=== PATIENT | female | born 1965 | race Caucasian/White ===

== ENCOUNTER 2017-06-18 07:38 | Emergency (ER) | payer BC ==
--- NOTE | 2017-06-18 08:18 | EDM.PDOC ---
ED HPI GENERAL MEDICAL PROBLEM - General Chief Complaint: General Stated Complaint: MUSCLE PAINS Time Seen by Provider: 06/18/17 08:40 Source of Information: Reports: Patient History Limitations: Reports: No Limitations - History of Present Illness INITIAL COMMENTS - FREE TEXT/NARRATIVE: History of present illness: []Patient is here chronic muscle cramps. Patient has had a cervical fusion and since then has had muscle cramps on the right side of her neck that she states triggers cramps all throughout her body. This morning she had a right calf cramp that is not unusual. She has had them before and they are unchanged. Patient was denied disability last week and was told that she needed to come to the ER for documentation of chronic pain. She has been evaluated by physics technical officer who is working her up for "fibro". Review of systems: As per history of present illness and below otherwise all systems reviewed and negative. Past medical history: As per history of present illness and as reviewed below otherwise noncontributory. Surgical history: As per history of present illness and as reviewed below otherwise noncontributory. Social history: No reported history of drug or alcohol abuse. Family history: As per history of present illness and as reviewed below otherwise noncontributory. Physical exam: General: Well developed, well nourished in NAD HEENT: Atraumatic, normocephalic, pupils reactive, negative for conjunctival pallor or scleral icterus, mucous membranes moist, throat clear, neck supple, nontender, trachea midline. Lungs: Clear to auscultation, breath sounds equal bilaterally, chest nontender. Heart: S1S2, regular, negative for clicks, rubs, or JVD. Abdomen: Soft, nondistended, nontender. Negative for masses or hepatosplenomegaly. Negative for costovertebral tenderness. Pelvis: Stable nontender. Genitourinary: Deferred. Rectal: Deferred. Extremities: Atraumatic, negative for cords or calf pain. Neurovascular unremarkable. Neuro: Awake, alert, oriented. Cranial nerves II through XII unremarkable. Cerebellum unremarkable. Motor and sensory unremarkable throughout. Exam nonfocal. Diagnostics: Labs chemistry including calcium mag and phosphorus are all negative Therapeutics: [] Impression: []Chronic muscle cramping Plan: []Increase fluids follow-up with primary care Definitive disposition and diagnosis as appropriate pending reevaluation and review of above. body Pain Score (Numeric/FACES): 10 - Related Data Allergies Allergy/AdvReac Type Severity Reaction Status Date / Time acetaminophen Allergy Other Verified 06/18/17 07:50 [From Darvocet-N] adhesive Allergy Other Verified 06/18/17 07:50 azithromycin Allergy Hives Verified 06/18/17 07:50 codeine Allergy Other Verified 06/18/17 07:50 cyclobenzaprine HCl Allergy Hives Verified 06/18/17 07:50 [From Flexeril] hydromorphone HCl Allergy Other Verified 06/18/17 07:50 [From Dilaudid] iodine Allergy Fever Verified 06/18/17 07:50 Latex, Natural Rubber Allergy Other Verified 06/18/17 07:50 meloxicam Allergy Hives Verified 06/18/17 07:50 morphine Allergy Other Verified 06/18/17 07:50 oxycodone HCl [From Percocet] Allergy Hives Verified 06/18/17 07:50 Penicillins Allergy Itching Verified 06/18/17 07:50 propoxyphene napsylate Allergy Other Verified 06/18/17 07:50 [From Darvocet-N] opiates Allergy Hives Uncoded 04/07/14 13:41 Home Meds: Home Meds Esomeprazole Magnesium [Nexium 24Hr] 20 mg PO DAILY 06/18/17 [History] Famotidine 20 mg PO DAILY 06/18/17 [History] L.acidoph,Paracasei, B.lactis [Probiotic] 1 cap PO DAILY 06/18/17 [History] Lisinopril 10 mg PO DAILY 06/18/17 [History] Loratadine 10 mg PO DAILY 06/18/17 [History] Mirtazapine 15 mg PO DAILY 06/18/17 [History] Venlafaxine [Effexor XR] 75 mg PO DAILY 06/18/17 [History] lamoTRIgine [Lamotrigine] 100 mg PO DAILY 06/18/17 [History] Past Medical History Cardiovascular History: Reports: Hypertension Respiratory History: Reports: None Gastrointestinal History: Reports: None Genitourinary History: Reports: None 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: , 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 (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) Other OB/BYN History: complete hysterectomy Musculoskeletal History: Reports: None Neurological History: Reports: None Psychiatric History: Reports: Anxiety, Depression Endocrine/Metabolic History: Reports: None Hematologic History: Reports: None Immunologic History: Reports: None Oncologic (Cancer) History: Reports: None Dermatologic History: Reports: None - Infectious Disease History Infectious Disease History: Reports: Chicken Pox - Past Surgical History Head Surgeries/Procedures: Reports: None HEENT Surgical History: Reports: None, Tonsillectomy Cardiovascular Surgical History: Reports: None Respiratory Surgical History: Reports: None GI Surgical History: Reports: None, Cholecystectomy Female Surgical History: Reports: None Endocrine Surgical History: Reports: None Neurological Surgical History: Reports: None Musculoskeletal Surgical History: Reports: Other (See Below) Other Musculoskeletal Surgeries/Procedures:: residual spinal, spinal fusions. Oncologic Surgical History: Reports: None Dermatological Surgical History: Reports: None Social & Family History - Family History Family Medical History: Noncontributory - Tobacco Use Smoking Status *Q: Current Every Day Smoker Years of Tobacco use: 30 Packs/Tins Daily: 1 - Caffeine Use Caffeine Use: Reports: Coffee - Alcohol Use Days Per Week of Alcohol Use: 0 - Recreational Drug Use Recreational Drug Use: No ED ROS GENERAL - Review of Systems Review Of Systems: See Below (See history of present illness) ED EXAM, GENERAL - Physical Exam Exam: See Below (See history of present illness) Course - Vital Signs Last Recorded V/S: Last Vital Signs Temp 97.0 F 06/18/17 07:50 Pulse 108 H 06/18/17 07:50 Resp 18 06/18/17 07:50 BP 143/83 H 06/18/17 07:50 Pulse Ox 95 06/18/17 07:50 - Orders/Labs/Meds Labs: Laboratory Tests 06/18/17 Range/Units 08:26 Sodium 137 (136-146) mmol/L Potassium 3.7 (3.5-5.1) mmol/L Chloride 104 (98-110) mmol/L Carbon Dioxide 21 (21-31) mmol/L BUN 15 (6.0-23.0) mg/dL Creatinine 1.0 (0.6-1.5) mg/dL Est Cr Clr Drug Dosing 66.18 mL/min Estimated GFR (MDRD) 58.9 ml/min Glucose 111 H (60-110) mg/dL Calcium 9.2 (8.8-10.8) mg/dL Phosphorus 2.8 (2.4-4.7) mg/dL Magnesium 1.6 (1.5-2.3) mEq/L Departure - Departure Time of Disposition: 09:13 Disposition: Home, Self-Care 01 Condition: Good Clinical Impression: Cramps, muscle, general - Discharge Information Referrals: PCP,None [Primary Care Provider] - Forms: ED Department Discharge Additional Instructions: The following information is given to patients seen in the emergency department who are being discharged to home. This information is to outline your options for follow-up care. We provide all patients seen in our emergency department with a follow-up referral. The need for follow-up, as well as the timing and circumstances, are variable depending upon the specifics of your emergency department visit. If you don't have a primary care physician on staff, we will provide you with a referral. We always advise you to contact your personal physician following an emergency department visit to inform them of the circumstance of the visit and for follow-up with them and/or the need for any referrals to a consulting specialist. The emergency department will also refer you to a specialist when appropriate. This referral assures that you have the opportunity for follow-up care with a specialist. All of these measure are taken in an effort to provide you with optimal care, which includes your follow-up. Under all circumstances we always encourage you to contact your private physician who remains a resource for coordinating your care. When calling for follow-up care, please make the office aware that this follow-up is from your recent emergency room visit. If for any reason you are refused follow-up, please contact the [facility] Emergency Department at and asked to speak to the emergency department charge nurse. Increase fluids ibuprofen or heat for pain follow-up with primary care and return if symptoms worsen or change [facility] [address] [place] [id number]
== END 2017-06-18 09:30 | disposition home or self-care (01) ==
LOC: MW.ED 07:38
DX: R25.2 Cramp and spasm (principal); I10 Essential (primary) hypertension; F17.210 Nicotine dependence, cigarettes, uncomplicated; Z91.040 Latex allergy status; Z88.5 Allergy status to narcotic agent; Z88.1 Allergy status to other antibiotic agents; Z88.0 Allergy status to penicillin; Z79.899 Other long term (current) drug therapy
CPT/HCPCS: 36415; 80048; 83735; 84100; 99284

== ENCOUNTER 2017-12-21 12:44 | Emergency (ER) | payer BC ==
--- NOTE | 2017-12-21 13:55 | EDM.PDOC ---
ED HPI GENERAL MEDICAL PROBLEM - General Chief Complaint: Back Pain or Injury Stated Complaint: LEGS,BACK AND NECK PAIN Time Seen by Provider: 12/21/17 13:07 Source of Information: Reports: Patient History Limitations: Reports: No Limitations - History of Present Illness INITIAL COMMENTS - FREE TEXT/NARRATIVE: HISTORY AND PHYSICAL: History of present illness: Patient is a 52-year-old female presents to the emergency room with complaints of low back pain that radiates down glutes and posterior thigh, bilaterally. She states she had tripped over her shoe on 12/13/2017 resulting in her landing on her knees and hitting against the wall sideways. She states since that time she has had some low back discomfort. Over the past 2 days she has had 2 long car rides to and from [place]. She states that during these long car ride she was unable to get comfortable and felt like the musculature in her back is very stiff. A history of fibromyalgia and spinal fusion of C4-C6, L5-S1 due to an injury that occurred in 2011. Denies hitting her head or any loss of consciousness. She states she does have some neuropathy (normal variance) but no new or worsening numbness or tingling to her distal extremities. Denies any urinary or fecal incontinence. Review of systems: As per history of present illness and below otherwise all systems reviewed and negative. Past medical history: As per history of present illness and as reviewed below otherwise noncontributory. Surgical history: As per history of present illness and as reviewed below otherwise noncontributory. Social history: No reported history of drug or alcohol abuse. Family history: As per history of present illness and as reviewed below otherwise noncontributory. Physical exam: General: Well-developed and well-nourished 52-year-old female. Alert and oriented. Nontoxic appearing and in no acute distress. HEENT: Atraumatic, normocephalic, pupils equal and reactive bilaterally, negative for conjunctival pallor or scleral icterus, mucous membranes moist, throat clear, neck supple, nontender, trachea midline. No drooling or trismus noted. No meningeal signs Lungs: Clear to auscultation, breath sounds equal bilaterally, chest nontender. Heart: S1S2, regular rate and rhythm without overt murmur Abdomen: Soft, nondistended, nontender. Negative for masses or hepatosplenomegaly. Negative for costovertebral tenderness. Pelvis: Stable nontender. Genitourinary: Deferred. Rectal: Deferred. C-spine/Back: Pinpoint vertebral tenderness upon palpation. No crepitus, step- offs or obvious deformities. Patient is ambulatory without any difficulty or deficits. Denies any Skin: Intact, warm, dry. No lesions or rashes noted. Extremities: Atraumatic, negative for cords or calf pain. Neurovascular unremarkable. Neuro: Awake, alert, oriented. Cranial nerves II through XII unremarkable. Cerebellum unremarkable. Motor and sensory unremarkable throughout. Exam nonfocal. Notes: Her x-ray shows normal alignment, vertebral body height is maintained without any acute findings. The information was shared with the patient. She states she currently does not have a pain management doctor. We discussed her acute on chronic back pain. I will give her #5 Norflex (allergic to flexeril) no refill. #30 tabs diclofenac, no refill. Supportive care measures were reviewed and discussed. He is agreeable to plan of care. Denies any further questions at this time. Diagnostics: Lumbar x-ray Therapeutics: Norflex Impression: Acute vs Chronic Back Pain Sciatica, bilateral Plan: 1. Gentle heat and stretching 2. Take medication as directed. Norflex may cause drowsiness, so please do not take while driving or needing to be functioning outside the house. 3. Please follow up with a primary care provider in the next 1-2 days. Return to the ED as needed and as discussed. Definitive disposition and diagnosis as appropriate pending reevaluation and review of above. Right Neck Pain Score (Numeric/FACES): 9 Bilateral Leg Pain Score (Numeric/FACES): 9 - Related Data Allergies Allergy/AdvReac Type Severity Reaction Status Date / Time acetaminophen Allergy Other Verified 12/21/17 12:56 [From Darvocet-N] adhesive Allergy Other Verified 12/21/17 12:56 azithromycin Allergy Hives Verified 12/21/17 12:56 codeine Allergy Other Verified 12/21/17 12:56 cyclobenzaprine HCl Allergy Hives Verified 12/21/17 12:56 [From Flexeril] hydromorphone HCl Allergy Other Verified 12/21/17 12:56 [From Dilaudid] iodine Allergy Fever Verified 12/21/17 12:56 Latex, Natural Rubber Allergy Other Verified 12/21/17 12:56 meloxicam Allergy Hives Verified 12/21/17 12:56 morphine Allergy Other Verified 12/21/17 12:56 oxycodone HCl [From Percocet] Allergy Hives Verified 12/21/17 12:56 Penicillins Allergy Itching Verified 12/21/17 12:56 propoxyphene napsylate Allergy Other Verified 12/21/17 12:56 [From Darvocet-N] opiates Allergy Hives Uncoded 04/07/14 13:41 Home Meds: Home Meds Esomeprazole Magnesium [Nexium 24Hr] 20 mg PO DAILY 06/18/17 [History] Famotidine 20 mg PO DAILY 06/18/17 [History] L.acidoph,Paracasei, B.lactis [Probiotic] 1 cap PO DAILY 06/18/17 [History] Lisinopril 10 mg PO DAILY 06/18/17 [History] Loratadine 10 mg PO DAILY 06/18/17 [History] Mirtazapine 15 mg PO DAILY 06/18/17 [History] Venlafaxine [Effexor XR] 75 mg PO DAILY 06/18/17 [History] Past Medical History Cardiovascular History: Reports: Hypertension Respiratory History: Reports: None Gastrointestinal History: Reports: None Genitourinary History: Reports: None 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: , 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 Musculoskeletal History: Reports: None Neurological History: Reports: None Psychiatric History: Reports: Anxiety, Depression Endocrine/Metabolic History: Reports: None Hematologic History: Reports: None Immunologic History: Reports: None Oncologic (Cancer) History: Reports: None Dermatologic History: Reports: None - Infectious Disease History Infectious Disease History: Reports: None - Past Surgical History Head Surgeries/Procedures: Reports: None HEENT Surgical History: Reports: None, Tonsillectomy Cardiovascular Surgical History: Reports: None Respiratory Surgical History: Reports: None GI Surgical History: Reports: None, Cholecystectomy Female Surgical History: Reports: None Endocrine Surgical History: Reports: None Neurological Surgical History: Reports: None Musculoskeletal Surgical History: Reports: Other (See Below) Other Musculoskeletal Surgeries/Procedures:: residual spinal, spinal fusions. Oncologic Surgical History: Reports: None Dermatological Surgical History: Reports: None Social & Family History - Family History Family Medical History: Noncontributory - Tobacco Use Smoking Status *Q: Current Every Day Smoker Years of Tobacco use: 30 Packs/Tins Daily: 0.7 - Caffeine Use Caffeine Use: Reports: Coffee - Recreational Drug Use Recreational Drug Use: No ED ROS GENERAL - Review of Systems Review Of Systems: ROS reveals no pertinent complaints other than HPI. ED EXAM,LOWER BACK PAIN/INJURY - Physical Exam Exam: See Below (see dictation) Course - Vital Signs Last Recorded V/S: Last Vital Signs Temp 97.0 F 12/21/17 12:59 Pulse 98 12/21/17 12:59 Resp 18 12/21/17 12:59 BP 141/90 H 12/21/17 12:59 Pulse Ox 92 L 12/21/17 12:59 - Orders/Labs/Meds Meds: Medications Discontinued Medications Generic Name Dose Route Start Last Admin Trade Name Alec PRN Reason Stop Dose Admin Orphenadrine Citrate 60 mg 12/21/17 13:48 12/21/17 13:53 Norflex IM 12/21/17 13:49 60 mg NOW STA Administration Departure - Departure Time of Disposition: 14:39 Disposition: Home, Self-Care 01 Clinical Impression: Sciatica Qualifiers: Laterality: bilateral Qualified Code(s): M54.31 - Sciatica, right side; M54.32 - Sciatica, left side Back pain Qualifiers: Back pain location: low back pain Chronicity: unspecified Back pain laterality : bilateral Sciatica presence: with sciatica Sciatica laterality: bilateral sciatica Qualified Code(s): M54.42 - Lumbago with sciatica, left side; M54.41 - Lumbago with sciatica, right side - Discharge Information Referrals: PCP,None [Primary Care Provider] - Forms: ED Department Discharge Additional Instructions: The following information is given to patients seen in the emergency department who are being discharged to home. This information is to outline your options for follow-up care. We provide all patients seen in our emergency department with a follow-up referral. The need for follow-up, as well as the timing and circumstances, are variable depending upon the specifics of your emergency department visit. If you don't have a primary care physician on staff, we will provide you with a referral. We always advise you to contact your personal physician following an emergency department visit to inform them of the circumstance of the visit and for follow-up with them and/or the need for any referrals to a consulting specialist. The emergency department will also refer you to a specialist when appropriate. This referral assures that you have the opportunity for follow-up care with a specialist. All of these measure are taken in an effort to provide you with optimal care, which includes your follow-up. Under all circumstances we always encourage you to contact your private physician who remains a resource for coordinating your care. When calling for follow-up care, please make the office aware that this follow-up is from your recent emergency room visit. If for any reason you are refused follow-up, please contact the [facility] Emergency Department at and asked to speak to the emergency department charge nurse. [facility] [address] [place] [id number] [facility] - Pain Management [address] [place] [id number] 1. Gentle heat and stretching 2. Take medication as directed. Norflex may cause drowsiness, so please do not take while driving or needing to be functioning outside the house. 3. Please follow up with a primary care provider in the next 1-2 days. 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 Return to the ED as needed and as discussed.
--- NOTE | 2017-12-21 14:26 | CR ---
EXAMINATION: Lumbar spine HISTORY: Injury COMPARISON: 05/12/2014 TECHNIQUE: AP and lateral views FINDINGS: The lumbar spinal alignment is normal. Vertebral body heights appear maintained. Posterior fusion changes noted at L5-S1. Mild marginal osteophytes. SI joints are symmetric. Bone mineralizatio n is normal. IMPRESSION: Postsurgical and degenerative changes without acute findings.
== END 2017-12-21 14:52 | disposition home or self-care (01) ==
LOC: MW.ED 12:44
DX: M54.41 Lumbago with sciatica, right side (principal); M54.42 Lumbago with sciatica, left side; I10 Essential (primary) hypertension; F17.210 Nicotine dependence, cigarettes, uncomplicated; Z88.6 Allergy status to analgesic agent; Z88.1 Allergy status to other antibiotic agents; Z88.5 Allergy status to narcotic agent; Z91.040 Latex allergy status; Z88.0 Allergy status to penicillin; Z88.8 Allergy status to other drugs, medicaments and biological substances; Z79.899 Other long term (current) drug therapy
CPT/HCPCS: 72100; 96372; 99284; J2360; 99283

== ENCOUNTER 2018-12-24 14:35 | Emergency (ER) | payer BC ==
[2018-12-24] MEDS ORDERED: Sodium Chloride 0.9% 2.5 ML Syringe FLUSH PRN (14:41)
[2018-12-24] MEDS ORDERED: Sodium Chloride 0.9% 10 ML Syringe FLUSH PRN (14:41)
[2018-12-24] MEDS ORDERED: Sodium Chloride 0.9% 1,000 ML IV ONE (14:41)
[2018-12-24] MEDS ORDERED: Albuterol/Ipratropium 3.0-0.5 MG/3 ML Neb Soln NEB ONE (14:53)
--- NOTE | 2018-12-24 14:57 | EDM.PDOC ---
ED HPI GENERAL MEDICAL PROBLEM - General Chief Complaint: Chest Pain Stated Complaint: UNK Time Seen by Provider: 12/24/18 14:54 Source of Information: Reports: Patient History Limitations: Reports: No Limitations - History of Present Illness INITIAL COMMENTS - FREE TEXT/NARRATIVE: HISTORY AND PHYSICAL: History of present illness: Patient is a 53-year-old female presents to the ED with complaint of chest pain. States that for the past month she has been having abdominal pain in the last couple of days having a lot of bloating. She states this morning she started having a pressure in her chest. She states she has been more short of breath recently, she is currently a smoker and has a history of COPD. She states she's been nauseous but denies vomiting, diarrhea, fevers, chills. Past medical history significant for hypertension and hyperlipidemia. Review of systems: As per history of present illness and below otherwise all systems reviewed and negative. Past medical history: As per history of present illness and as reviewed below otherwise noncontributory. Surgical history: As per history of present illness and as reviewed below otherwise noncontributory. Social history: No reported history of drug or alcohol abuse. Family history: As per history of present illness and as reviewed below otherwise noncontributory. Physical exam: General: Patient sitting comfortably in no acute distress and nontoxic appearing HEENT: Atraumatic, normocephalic, pupils reactive, negative for conjunctival pallor or scleral icterus, mucous membranes moist, throat clear, neck supple, nontender, trachea midline. No meningeal signs. Lungs: Clear to auscultation, breath sounds equal bilaterally, tender to palpation of left anterior chest wall. Heart: S1S2, regular, negative for clicks, rubs, or overt murmur. Abdomen: Soft, nondistended, nontender. Negative for masses or hepatosplenomegaly. Negative for costovertebral tenderness. No rigidity, rebound , guarding. Pelvis: Stable nontender. Genitourinary: Deferred. Rectal: Deferred. Extremities: Atraumatic, negative for cords or calf pain. Neurovascular unremarkable. Neuro: Awake, alert, oriented. Cranial nerves II through XII unremarkable. Cerebellum unremarkable. Motor and sensory unremarkable throughout. Exam nonfocal. Notes: Discussed with patient that I strongly recommend admitting to observation to rule out ACS. She declines at this time and understands my concerns and risks of this. Diagnostics: CBC, CMP, Troponin, UA, EKG, CXR, Abdomen CT/Pelvis Therapeutics: 1L Normal Saline IV DuoNeb GI cocktail Prescriptions: Impression: Atypical chest pain, abdominal pain Plan: 1. Follow up with primary care provider 2. Return to ED as needed as discussed Definitive disposition and diagnosis as appropriate pending reevaluation and review of above. Generalized Pain Score (Numeric/FACES): 8 - Related Data Allergies Allergy/AdvReac Type Severity Reaction Status Date / Time acetaminophen Allergy Difficulty Verified 12/24/18 14:40 [From Darvocet-N] Breathing adhesive Allergy Rash Verified 12/24/18 14:40 azithromycin Allergy Hives Verified 12/21/17 12:56 codeine Allergy Itching Verified 12/24/18 14:40 cyclobenzaprine HCl Allergy Hives Verified 12/21/17 12:56 [From Flexeril] hydromorphone HCl Allergy Difficulty Verified 12/24/18 14:40 [From Dilaudid] Breathing iodine Allergy Fever Verified 12/21/17 12:56 Latex, Natural Rubber Allergy Respiratory Verified 12/24/18 14:40 Distress meloxicam Allergy Hives Verified 12/21/17 12:56 morphine Allergy Anaphylactic Verified 12/24/18 14:40 Shock oxycodone HCl [From Percocet] Allergy Hives Verified 12/21/17 12:56 Penicillins Allergy Itching Verified 12/21/17 12:56 propoxyphene napsylate Allergy Difficulty Verified 12/24/18 14:40 [From Darvocet-N] Breathing opiates Allergy Hives Uncoded 04/07/14 13:41 Home Meds: Home Meds Esomeprazole Magnesium [Nexium 24Hr] 20 mg PO DAILY 06/18/17 [History] Famotidine 20 mg PO DAILY 06/18/17 [History] Lisinopril 10 mg PO DAILY 06/18/17 [History] Mirtazapine 15 mg PO DAILY 06/18/17 [History] PARoxetine [Paxil] 20 mg PO DAILY 12/24/18 [History] lamoTRIgine [Lamotrigine] 100 mg PO DAILY 12/24/18 [History] Past Medical History Cardiovascular History: Reports: Hypertension Respiratory History: Reports: None Gastrointestinal History: Reports: None Genitourinary History: Reports: None SLURRY CONTROL TENDER History: Reports: , Other (See Below) Other SLURRY CONTROL TENDER History: complete hysterectomy Musculoskeletal History: Reports: None Neurological History: Reports: None Psychiatric History: Reports: Anxiety, Depression Endocrine/Metabolic History: Reports: None Hematologic History: Reports: None Immunologic History: Reports: None Oncologic (Cancer) History: Reports: None Dermatologic History: Reports: None - Infectious Disease History Infectious Disease History: Reports: Chicken Pox - Past Surgical History Head Surgeries/Procedures: Reports: None HEENT Surgical History: Reports: Tonsillectomy Cardiovascular Surgical History: Reports: None Respiratory Surgical History: Reports: None GI Surgical History: Reports: Cholecystectomy Female Surgical History: Reports: Hysterectomy Endocrine Surgical History: Reports: None Neurological Surgical History: Reports: None Musculoskeletal Surgical History: Reports: Other (See Below) Other Musculoskeletal Surgeries/Procedures:: residual spinal, spinal fusions. Oncologic Surgical History: Reports: None Dermatological Surgical History: Reports: None Social & Family History - Family History Family Medical History: Noncontributory - Tobacco Use Smoking Status *Q: Current Every Day Smoker Years of Tobacco use: 30 Packs/Tins Daily: 1 - Caffeine Use Caffeine Use: Reports: Coffee, Soda - Recreational Drug Use Recreational Drug Use: No ED ROS GENERAL - Review of Systems Review Of Systems: ROS reveals no pertinent complaints other than HPI. ED EXAM, GENERAL - Physical Exam Exam: See Below (see dictation) Course - Vital Signs Last Recorded V/S: Last Vital Signs Temp 96.3 F 12/24/18 14:43 Pulse 83 12/24/18 17:17 Resp 18 12/24/18 17:17 BP 117/76 12/24/18 17:17 Pulse Ox 97 12/24/18 17:17 - Orders/Labs/Meds Orders: Active Orders 24 hr Category Date Time Status Cardiac Monitoring [RC] . DIRECTED Care 12/24/18 14:41 Active EKG Documentation Completion [RC] STAT Care 12/24/18 14:41 Active RT Aerosol Therapy [RC] ASDIRECTED Care 12/24/18 14:54 Active Sodium Chloride 0.9% [Saline Flush] Med 12/24/18 14:41 Active 10 ml FLUSH ASDIRECTED PRN Sodium Chloride 0.9% [Saline Flush] Med 12/24/18 14:41 Active 2.5 ml FLUSH ASDIRECTED PRN Saline Lock Insert [OM.PC] Stat Ot 12/24/18 14:41 Ordered Medication Orders Sodium Chloride (Saline Flush) 10 ml FLUSH ASDIRECTED PRN PRN Reason: Keep Vein Open Last Admin: 12/24/18 14:59 Dose: 10 ml Sodium Chloride (Saline Flush) 2.5 ml FLUSH ASDIRECTED PRN PRN Reason: Keep Vein Open Last Admin: 12/24/18 14:59 Dose: 2.5 ml Labs: Laboratory Tests 12/24/18 12/24/18 12/24/18 Range/Units 14:56 14:56 14:56 WBC 7.27 (4.0-11.0) K/uL RBC 4.87 (4.30-5.90) M/uL Hgb 14.5 (12.0-16.0) g/dL Hct 42.7 (36.0-46.0) % MCV 87.7 (80.0-98.0) fL MCH 29.8 (27.0-32.0) pg MCHC 34.0 (31.0-37.0) g/dL RDW Std Deviation 43.0 (28.0-62.0) fl RDW Coeff of [place] 14 (11.0-15.0) % Plt Count 231 (150-400) K/uL MPV 9.90 (7.40-12.00) fL Neut % (Auto) 40.4 L (48.0-80.0) % Lymph % (Auto) 47.3 H (16.0-40.0) % [place] % (Auto) 8.0 (0.0-15.0) % Eos % (Auto) 3.7 (0.0-7.0) % Baso % (Auto) 0.6 (0.0-1.5) % Neut # (Auto) 2.9 (1.4-5.7) K/uL Lymph # (Auto) 3.4 H (0.6-2.4) K/uL [place] # (Auto) 0.6 (0.0-0.8) K/uL Eos # (Auto) 0.3 (0.0-0.7) K/uL Baso # (Auto) 0.0 (0.0-0.1) K/uL Nucleated RBC % 0.0 /100WBC Nucleated RBCs # 0 K/uL INR 0.98 Sodium 141 (136-145) mmol/L Potassium 3.9 (3.5-5.1) mmol/L Chloride 105 (98-107) mmol/L Carbon Dioxide 27.5 (21.0-32.0) mmol/L BUN 15 (7.0-18.0) mg/dL Creatinine 0.9 (0.6-1.0) mg/dL Est Cr Clr Drug Dosing 69.23 mL/min Estimated GFR (MDRD) > 60.0 ml/min Glucose 88 (74-106) mg/dL Calcium 9.1 (8.5-10.1) mg/dL Total Bilirubin 0.5 (0.2-1.0) mg/dL AST 30 (15-37) IU/L ALT 42 (14-63) IU/L Alkaline Phosphatase 110 (46-116) U/L Troponin I < 0.050 (0.000-0.056) ng/mL Total Protein 7.0 (6.4-8.2) g/dL Albumin 3.6 (3.4-5.0) g/dL Globulin 3.4 (2.6-4.0) g/dL Albumin/Globulin Ratio 1.1 (0.9-1.6) Urine Color Urine Appearance Urine pH (5.0-8.0) Ur Specific [place] (1.001-1.035) Urine Protein (NEGATIVE) mg/dL Urine Glucose (UA) (NEGATIVE) mg/dL Urine Ketones (NEGATIVE) mg/dL Urine Occult Blood (NEGATIVE) Urine Nitrite (NEGATIVE) Urine Bilirubin (NEGATIVE) Urine Urobilinogen (<2.0) EU/dL Ur Leukocyte Esterase (NEGATIVE) 12/24/18 Range/Units 16:00 WBC (4.0-11.0) K/uL RBC (4.30-5.90) M/uL Hgb (12.0-16.0) g/dL Hct (36.0-46.0) % MCV (80.0-98.0) fL MCH (27.0-32.0) pg MCHC (31.0-37.0) g/dL RDW Std Deviation (28.0-62.0) fl RDW Coeff of [place] (11.0-15.0) % Plt Count (150-400) K/uL MPV (7.40-12.00) fL Neut % (Auto) (48.0-80.0) % Lymph % (Auto) (16.0-40.0) % [place] % (Auto) (0.0-15.0) % Eos % (Auto) (0.0-7.0) % Baso % (Auto) (0.0-1.5) % Neut # (Auto) (1.4-5.7) K/uL Lymph # (Auto) (0.6-2.4) K/uL [place] # (Auto) (0.0-0.8) K/uL Eos # (Auto) (0.0-0.7) K/uL Baso # (Auto) (0.0-0.1) K/uL Nucleated RBC % /100WBC Nucleated RBCs # K/uL INR Sodium (136-145) mmol/L Potassium (3.5-5.1) mmol/L Chloride (98-107) mmol/L Carbon Dioxide (21.0-32.0) mmol/L BUN (7.0-18.0) mg/dL Creatinine (0.6-1.0) mg/dL Est Cr Clr Drug Dosing mL/min Estimated GFR (MDRD) ml/min Glucose (74-106) mg/dL Calcium (8.5-10.1) mg/dL Total Bilirubin (0.2-1.0) mg/dL AST (15-37) IU/L ALT (14-63) IU/L Alkaline Phosphatase (46-116) U/L Troponin I (0.000-0.056) ng/mL Total Protein (6.4-8.2) g/dL Albumin (3.4-5.0) g/dL Globulin (2.6-4.0) g/dL Albumin/Globulin Ratio (0.9-1.6) Urine Color YELLOW Urine Appearance CLEAR Urine pH 6.0 (5.0-8.0) Ur Specific [place] 1.020 (1.001-1.035) Urine Protein NEGATIVE (NEGATIVE) mg/dL Urine Glucose (UA) NEGATIVE (NEGATIVE) mg/dL Urine Ketones NEGATIVE (NEGATIVE) mg/dL Urine Occult Blood NEGATIVE (NEGATIVE) Urine Nitrite NEGATIVE (NEGATIVE) Urine Bilirubin NEGATIVE (NEGATIVE) Urine Urobilinogen 0.2 (<2.0) EU/dL Ur Leukocyte Esterase NEGATIVE (NEGATIVE) Meds: Medications Generic Name Dose Route Start Last Admin Trade Name Freq PRN Reason Stop Dose Admin Sodium Chloride 10 ml 12/24/18 14:41 12/24/18 14:59 Saline Flush FLUSH 10 ml ASDIRECTED PRN Administration Keep Vein Open Sodium Chloride 2.5 ml 12/24/18 14:41 12/24/18 14:59 Saline Flush FLUSH 2.5 ml ASDIRECTED PRN Administration Keep Vein Open Discontinued Medications Generic Name Dose Route Start Last Admin Trade Name Freq PRN Reason Stop Dose Admin Albuterol/Ipratropium 3 ml 12/24/18 14:53 12/24/18 15:07 Duoneb 3.0-0.5 Mg/3 Ml NEB 12/24/18 14:54 3 ml ONETIME ONE Administration Al Hydroxide/Mg Hydroxide 15 0 ml 12/24/18 16:09 12/24/18 16:23 ml/ Lidocaine HCl 5 ml PO 12/24/18 16:10 5 each ONETIME ONE Administration Sodium Chloride 1,000 mls @ 999 mls/hr 12/24/18 14:41 12/24/18 14:58 Normal Saline IV 12/24/18 15:41 999 mls/hr BOLUS ONE Administration Iopamidol 100 ml 12/24/18 16:30 12/24/18 16:31 Isovue Multipack-370 (76%) IVPUSH 12/24/18 16:31 100 ml ONETIME ONE Administration Departure - Departure Time of Disposition: 17:30 Disposition: Home, Self-Care 01 Condition: Good Clinical Impression: Atypical chest pain, Abdominal pain Referrals: PCP,Unknown [Primary Care Provider] - Forms: ED Department Discharge Additional Instructions: The following information is given to patients seen in the emergency department who are being discharged to home. This information is to outline your options for follow-up care. We provide all patients seen in our emergency department with a follow-up referral. The need for follow-up, as well as the timing and circumstances, are variable depending upon the specifics of your emergency department visit. If you don't have a primary care physician on staff, we will provide you with a referral. We always advise you to contact your personal physician following an emergency department visit to inform them of the circumstance of the visit and for follow-up with them and/or the need for any referrals to a consulting specialist. The emergency department will also refer you to a specialist when appropriate. This referral assures that you have the opportunity for follow-up care with a specialist. All of these measure are taken in an effort to provide you with optimal care, which includes your follow-up. Under all circumstances we always encourage you to contact your private physician who remains a resource for coordinating your care. When calling for follow-up care, please make the office aware that this follow-up is from your recent emergency room visit. If for any reason you are refused follow-up, please contact the [facility] Emergency Department at and asked to speak to the emergency department charge nurse. [facility] [address] [place], [place] [id number] [place] [address] 1. Follow up with primary care provider 2. Return to ED as needed as discussed - My Orders Last 24 Hours: My Active Orders 12/24/18 14:41 Cardiac Monitoring [RC] . DIRECTED EKG Documentation Completion [RC] STAT Sodium Chloride 0.9% [Saline Flush] 10 ml FLUSH ASDIRECTED PRN Sodium Chloride 0.9% [Saline Flush] 2.5 ml FLUSH ASDIRECTED PRN Saline Lock Insert [OM.PC] Stat 12/24/18 14:54 RT Aerosol Therapy [RC] ASDIRECTED - Assessment/Plan Last 24 Hours: My Active Orders 12/24/18 14:41 Cardiac Monitoring [RC] . DIRECTED EKG Documentation Completion [RC] STAT Sodium Chloride 0.9% [Saline Flush] 10 ml FLUSH ASDIRECTED PRN Sodium Chloride 0.9% [Saline Flush] 2.5 ml FLUSH ASDIRECTED PRN Saline Lock Insert [OM.PC] Stat 12/24/18 14:54 RT Aerosol Therapy [RC] ASDIRECTED
--- NOTE | 2018-12-24 15:25 | CR ---
EXAMINATION: Portable chest radiograph. HISTORY: Chest pain. FINDINGS: The trachea is midline. The cardiomediastinal silhouette is within normal limits. No pulmonary infiltrates, effusions or pneumothorax. Osseous structures appear unremarkable. IMPRESSION: No acute cardiopulmonary process.
[2018-12-24 15:34] LABS: CHLORIDE,CL 105 mmol/L (98-107); SODIUM,NA 141 mmol/L (136-145)
[2018-12-24] MEDS ORDERED: Alum Hydrox/Mag Hydrox/Simeth 15 ML, Lidocaine 2% 5 ML PO ONE ×2 (16:09)
[2018-12-24] MEDS ORDERED: Iopamidol 755 MG/ML 500 ML Multipack Bottle IVPUSH ONE (16:30)
--- NOTE | 2018-12-24 17:13 | CT ---
INDICATION: Bilateral upper abdominal pain radiating into the chest. COMPARISON: None available TECHNIQUE: CT examination of the abdomen and pelvis was performed with the uneventful intravenous administration of 100 cc of Isovue 370 while 3 mm thick axial sections were obtained from the lung bases through the pubic symphysis. Oral contrast was not administered. Please note that all CT scans at this facility use dose modulation, iterative reconstruction, and/or weight-based dosing when appropriate to reduce radiation dose to as low as reasonably achievable. FINDINGS: In the abdomen, the liver is low in density, representing fatty infiltration. There is no sign of mass. The spleen, pancreas and adrenals are normal in appearance. The kidneys are normal in appearance. Clips are seen in the gall bladder fossa from cholecystectomy. The abdominal aorta is normal in caliber with no sign of dilatation. There is no sign of retroperitoneal mass or adenopathy. The stomach, loops of small bowel, and colon in the abdomen are normal in appearance. In the pelvis, the appendix is normal in appearance with no sign of inflammatory process. The loops of small bowel and colon in the pelvis are normal in appearance. The uterus is absent and the adnexal regions are normal in appearance. The urinary bladder is normal in appearance. There is no sign of pelvic or inguinal mass or adenopathy. The lung bases are clear. There are changes of laminectomy and fusion at L5-S1. The fused segments are in anatomic alignment. Bilateral intrapedicular screws are seen with vertical connecting hardware. An interbody spacers present. The rest of the osseous structures are unremarkable for the patient`s age. IMPRESSION: Nothing seen to explain the patient`s upper abdominal pain. CT of the abdomen shows fatty infiltration of the liver. Status post cholecystectomy. Normal CT of the pelvis status post hysterectomy. Please note that all CT scans at this facility use dose modulation, iterative reconstruction, and/or weight-based dosing when appropriate to reduce radiation dose to as low as reasonably achievable. Dictated by Maxi Blue MD @ Dec 24 2018 5:08PM Signed by Dr. Maxi Blue @ Dec 24 2018 5:13PM
== END 2018-12-24 17:44 | disposition home or self-care (01) ==
LOC: MW.ED 14:35
DX: R07.89 Other chest pain (principal); R10.9 Unspecified abdominal pain; I10 Essential (primary) hypertension; F41.9 Anxiety disorder, unspecified; F32.9 Major depressive disorder, single episode, unspecified; F17.210 Nicotine dependence, cigarettes, uncomplicated; Z98.890 Other specified postprocedural states; Z90.710 Acquired absence of both cervix and uterus; Z88.0 Allergy status to penicillin; Z88.5 Allergy status to narcotic agent; Z91.040 Latex allergy status; Z88.8 Allergy status to other drugs, medicaments and biological substances; Z88.1 Allergy status to other antibiotic agents; Z90.49 Acquired absence of other specified parts of digestive tract
CPT/HCPCS: 36415; 71045; 74177; 80053; 81003; 84484; 85025; 85610; 93005; 94640; 96360; 99285; A9270; J7040; Q9967; 99284; J7620-GY

== ENCOUNTER 2019-02-05 13:07 | Emergency (ER) | payer BC ==
--- NOTE | 2019-02-05 13:17 | EDM.PDOC ---
ED HPI GENERAL MEDICAL PROBLEM - General Chief Complaint: ENT Problem Stated Complaint: SINUS Time Seen by Provider: 02/05/19 13:16 Source of Information: Reports: Patient History Limitations: Reports: No Limitations - History of Present Illness INITIAL COMMENTS - FREE TEXT/NARRATIVE: HISTORY AND PHYSICAL: History of present illness: Patient is a 53-year-old female who presents to the emergency room with complaints of sinus pain, bilateral ear pain and seasonal allergies. She states symptoms have been ongoing for the past 4-6 weeks. She did see her primary care provider who told her she had a ear infection along with a sinus infection. Was placed on antibiotics but only took a few days' worth of this medication as it caused GI upset. Patient denies any fever, chills, headache, change in vision, syncope or near syncope. Denies any chest pain, back pain, shortness of breath or cough. Denies any abdominal pain, nausea, vomiting, diarrhea, constipation or dysuria. Has not noted any blood in urine or stool. Patient has been eating and drinking appropriately. Review of systems: As per history of present illness and below otherwise all systems reviewed and negative. Past medical history: As per history of present illness and as reviewed below otherwise noncontributory. Surgical history: As per history of present illness and as reviewed below otherwise noncontributory. Social history: See social history for further information Family history: As per history of present illness and as reviewed below otherwise noncontributory. Physical exam: General: Well-developed and well-nourished 53-year-old female. Alert and oriented. Nontoxic appearing and in no acute distress. HEENT: Atraumatic, normocephalic, pupils equal and reactive bilaterally, negative for conjunctival pallor or scleral icterus, mucous membranes moist, left TM is erythematous with good light reflex and no bulging, right TM normal, bilateral frontal and maxillary sinus tenderness to palpation, throat clear, neck supple, nontender, trachea midline. No drooling or trismus noted. No meningeal signs. No hot potato voice noted. Lungs: Clear to auscultation, breath sounds equal bilaterally, chest nontender. Heart: S1S2, regular rate and rhythm without overt murmur Abdomen: Soft, nondistended, nontender. Negative for masses or hepatosplenomegaly. Negative for costovertebral tenderness. Pelvis: Stable nontender. Genitourinary: Deferred. Rectal: Deferred. Skin: Intact, warm, dry. No lesions or rashes noted. Extremities: Atraumatic, moves all extremities per self without difficulty or deficits, negative for cords or calf pain. Neurovascular unremarkable. Neuro: Awake, alert, oriented. Cranial nerves II through XII unremarkable. Cerebellum unremarkable. Motor and sensory unremarkable throughout. Exam nonfocal. Notes: Patient states that oral antibiotics to cause her to have GI upset. I will give her Rocephin while here. We discussed the importance of following up with earth science faculty member. Supportive care measures were reviewed and discussed. Voices understanding and is agreeable to plan of care. Denies any further questions or concerns at this time. Diagnostics: None Therapeutics: Rocephin Prescription: None Impression: Sinusitis Plan: 1. Continue taking your allergy/sinus medications as directed. 2. A nasal decongestant may help with the right ear pain. 3. Follow-up with the earth science faculty member as we discussed. The closest provider is Dr. Oneal at [facility]. 4. Return to the ED as needed and as discussed. Definitive disposition and diagnosis as appropriate pending reevaluation and review of above. mouth Pain Score (Numeric/FACES): 9 - Related Data Allergies Allergy/AdvReac Type Severity Reaction Status Date / Time acetaminophen Allergy Difficulty Verified 12/24/18 14:40 [From Darvocet-N] Breathing adhesive Allergy Rash Verified 12/24/18 14:40 azithromycin Allergy Hives Verified 12/21/17 12:56 codeine Allergy Itching Verified 12/24/18 14:40 cyclobenzaprine HCl Allergy Hives Verified 12/21/17 12:56 [From Flexeril] hydromorphone HCl Allergy Difficulty Verified 12/24/18 14:40 [From Dilaudid] Breathing iodine Allergy Fever Verified 12/21/17 12:56 Latex, Natural Rubber Allergy Respiratory Verified 12/24/18 14:40 Distress meloxicam Allergy Hives Verified 12/21/17 12:56 morphine Allergy Anaphylactic Verified 12/24/18 14:40 Shock oxycodone HCl [From Percocet] Allergy Hives Verified 12/21/17 12:56 Penicillins Allergy Itching Verified 12/21/17 12:56 propoxyphene napsylate Allergy Difficulty Verified 12/24/18 14:40 [From Milli-N] Breathing opiates Allergy Hives Uncoded 04/07/14 13:41 Home Meds: Home Meds Esomeprazole Magnesium [Nexium 24Hr] 20 mg PO DAILY 06/18/17 [History] Famotidine 20 mg PO DAILY 06/18/17 [History] Lisinopril 10 mg PO DAILY 06/18/17 [History] Mirtazapine 15 mg PO DAILY 06/18/17 [History] PARoxetine [Paxil] 20 mg PO DAILY 12/24/18 [History] lamoTRIgine [Lamotrigine] 100 mg PO DAILY 12/24/18 [History] Past Medical History Cardiovascular History: Reports: Hypertension Respiratory History: Reports: None Gastrointestinal History: Reports: None Genitourinary History: Reports: None 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: , Other (See Below) Other EXTRUDER OPERATOR HELPER History: complete hysterectomy Musculoskeletal History: Reports: None Neurological History: Reports: None Psychiatric History: Reports: Anxiety, Depression Endocrine/Metabolic History: Reports: None Hematologic History: Reports: None Immunologic History: Reports: None Oncologic (Cancer) History: Reports: None Dermatologic History: Reports: None - Infectious Disease History Infectious Disease History: Reports: Chicken Pox - Past Surgical History Head Surgeries/Procedures: Reports: None HEENT Surgical History: Reports: Tonsillectomy Cardiovascular Surgical History: Reports: None Respiratory Surgical History: Reports: None GI Surgical History: Reports: Cholecystectomy Female Surgical History: Reports: Hysterectomy Endocrine Surgical History: Reports: None Neurological Surgical History: Reports: None Musculoskeletal Surgical History: Reports: Other (See Below) Other Musculoskeletal Surgeries/Procedures:: residual spinal, spinal fusions. Oncologic Surgical History: Reports: None Dermatological Surgical History: Reports: None Social & Family History - Family History Family Medical History: Noncontributory - Caffeine Use Caffeine Use: Reports: Coffee, Soda ED ROS ENT - Review of Systems Review Of Systems: ROS reveals no pertinent complaints other than HPI. ED EXAM, ENT - Physical Exam Exam: See Below (See dictation) Course - Vital Signs Last Recorded V/S: Last Vital Signs Temp 96.8 F 02/05/19 13:21 Pulse 84 02/05/19 13:21 Resp 16 02/05/19 13:21 BP 142/88 H 02/05/19 13:21 Pulse Ox 95 02/05/19 13:21 - Orders/Labs/Meds Orders: Medication Orders Ceftriaxone Sodium (Rocephin) 1 gm IM ONETIME ONE Stop: 02/05/19 13:32 Lidocaine HCl (Xylocaine-Mpf 1%) 2 ml INJECT ONETIME ONE Stop: 02/05/19 13:33 Meds: Medications Generic Name Dose Route Start Last Admin Trade Name Alec PRN Reason Stop Dose Admin Ceftriaxone Sodium 1 gm 02/05/19 13:31 Rocephin IM 02/05/19 13:32 ONETIME ONE Lidocaine HCl 2 ml 02/05/19 13:32 Xylocaine-Mpf 1% INJECT 02/05/19 13:33 ONETIME ONE Departure - Departure Time of Disposition: 13:38 Disposition: Home, Self-Care 01 Clinical Impression: Sinusitis Qualifiers: Sinusitis location: frontal Chronicity: unspecified Qualified Code(s): J32.1 - Chronic frontal sinusitis - Discharge Information Instructions: Sinusitis, Adult, [id number] Referrals: Jennifer Salinas MD [Primary Care Provider] - Forms: ED Department Discharge Additional Instructions: The following information is given to patients seen in the emergency department who are being discharged to home. This information is to outline your options for follow-up care. We provide all patients seen in our emergency department with a follow-up referral. The need for follow-up, as well as the timing and circumstances, are variable depending upon the specifics of your emergency department visit. If you don't have a primary care physician on staff, we will provide you with a referral. We always advise you to contact your personal physician following an emergency department visit to inform them of the circumstance of the visit and for follow-up with them and/or the need for any referrals to a consulting specialist. The emergency department will also refer you to a specialist when appropriate. This referral assures that you have the opportunity for follow-up care with a specialist. All of these measure are taken in an effort to provide you with optimal care, which includes your follow-up. Under all circumstances we always encourage you to contact your private physician who remains a resource for coordinating your care. When calling for follow-up care, please make the office aware that this follow-up is from your recent emergency room visit. If for any reason you are refused follow-up, please contact the [facility] at and asked to speak to the emergency department charge nurse. [facility] [address] [place] [address] [address] 1. Continue taking your allergy/sinus medications as directed. 2. A nasal decongestant may help with the right ear pain. 3. Follow-up with the earth science faculty member as we discussed. The closest provider is Dr. Oneal at [facility]. 4. Return to the ED as needed and as discussed.
[2019-02-05] MEDS ORDERED: cefTRIAXone 1 GM Vial IM ONE (13:31)
[2019-02-05] MEDS ORDERED: Lidocaine 1% PF 2 ML SDV INJECT ONE (13:32)
== END 2019-02-05 14:19 | disposition home or self-care (01) ==
LOC: MW.ED 13:07
DX: J32.1 Chronic frontal sinusitis (principal); I10 Essential (primary) hypertension; F41.9 Anxiety disorder, unspecified; F32.9 Major depressive disorder, single episode, unspecified; Z88.1 Allergy status to other antibiotic agents; Z88.5 Allergy status to narcotic agent; Z88.8 Allergy status to other drugs, medicaments and biological substances; Z91.048 Other nonmedicinal substance allergy status; Z91.040 Latex allergy status; Z88.0 Allergy status to penicillin; Z79.899 Other long term (current) drug therapy
CPT/HCPCS: 96372; 99283; J0696; J2001

== ENCOUNTER 2019-03-24 07:47 | Emergency (ER) | payer BC, OTHER ==
--- NOTE | 2019-03-24 08:22 | EDM.PDOC ---
ED HPI GENERAL MEDICAL PROBLEM - General Chief Complaint: Back Pain or Injury Stated Complaint: FALL- HURT BOTH ANKLES AND KNEES Time Seen by Provider: 03/24/19 08:10 - History of Present Illness INITIAL COMMENTS - FREE TEXT/NARRATIVE: HISTORY AND PHYSICAL: History of present illness: The patient is a 53-year-old female who works at the local [employer] and presents after she tripped on a curb and fell forward onto her knees without losing consciousness or hitting her head. The patient said she was trying to multitask and a curb and fell forward more on her right knee and then her left knee. She initially complained of bilateral knee pain bilateral ankle pains and her entire back from her neck to her lumbar spine was hurting her. She did not hit her head pass out or black out and has no weakness numbness or tingling in her extremities. Prior to these events she was in her usual state of good health without systemic issues. She does admit that she drinks a lot of Mountain Dew at work and stands for prolonged period of time and she says that her legs are swollen and she thinks it may be due to that. She denies any upper extremity or hand complaints and did not impact her face or head with this fall. Review of systems: As per history of present illness and below otherwise all systems reviewed and negative. Past medical history: As per history of present illness and as reviewed below otherwise noncontributory. Surgical history: As per history of present illness and as reviewed below otherwise noncontributory. Social history: No reported history of drug or alcohol abuse. Family history: As per history of present illness and as reviewed below otherwise noncontributory. Physical exam: General: Well-developed well-nourished female who is nontoxic and who ambulated into the ED without assistance. Vital signs are noted by me HEENT: Atraumatic, normocephalic, pupils reactive, negative for conjunctival pallor or scleral icterus, mucous membranes moist, throat clear, neck supple, nontender, trachea midline. There are no midline step-offs in his defects of the cervical spine and no facial injuries are appreciated Lungs: Clear to auscultation, breath sounds equal bilaterally, chest nontender. Heart: S1S2, regular rate and rhythm no overt murmurs Abdomen: Soft, nondistended, nontender. NABS Negative for costovertebral tenderness. Pelvis: Stable nontender. Genitourinary: Deferred. Rectal: Deferred. Extremities: Atraumatic and full range of motion of all extremities with the exception of bilateral knees where there is some erythema and some superficial abrasions bilaterally but no palpable bony deformities joint effusion ecchymosis. There is some minimal soft tissue swelling right greater than left but no defects deformities or gross effusions. There is an old scab seen on the right knee which the patient says occurred with a prior fall. There is no proximal femur or hip tenderness bilaterally and there is no distal tib-fib ankle or foot tenderness bilaterally. The patient does have bilateral 1+ dependent edema including swelling of her ankles bilaterally but there are no bony defects or deformities. Legs are, negative for cords or calf pain. Neurovascular unremarkable. Neuro: Awake, alert, oriented. Cranial nerves II through XII unremarkable. Cerebellum unremarkable. Motor and sensory unremarkable throughout. Exam nonfocal. Back: There are no midline step-offs in his defects of the thoracic or lumbar spine and no gross paraspinal tenderness on palpation Diagnostics: Bilateral knee x-rays I discussed with the patient that because she fell forward she likely did not break any bones in her back and that that is all musculoskeletal which she is comfortable with not doing x-rays, she also did not impact her ankles and the swelling that is seen is more dependent edema so we opted not to x-ray that was ankles either. Therapeutics: The patient declines pain medication Neoprene splint right knee Impression: Bilateral knee contusions status post fall Definitive disposition and diagnosis as appropriate pending reevaluation and review of above. bilateral ankles, bilateral knees Pain Score (Numeric/FACES): 8 - Related Data Allergies Allergy/AdvReac Type Severity Reaction Status Date / Time acetaminophen Allergy Difficulty Verified 12/24/18 14:40 [From Darvocet-N] Breathing adhesive Allergy Rash Verified 12/24/18 14:40 azithromycin Allergy Hives Verified 12/21/17 12:56 codeine Allergy Itching Verified 12/24/18 14:40 cyclobenzaprine HCl Allergy Hives Verified 12/21/17 12:56 [From Flexeril] hydromorphone HCl Allergy Difficulty Verified 12/24/18 14:40 [From Dilaudid] Breathing iodine Allergy Fever Verified 12/21/17 12:56 Latex, Natural Rubber Allergy Respiratory Verified 12/24/18 14:40 Distress meloxicam Allergy Hives Verified 12/21/17 12:56 morphine Allergy Anaphylactic Verified 12/24/18 14:40 Shock oxycodone HCl [From Percocet] Allergy Hives Verified 12/21/17 12:56 Penicillins Allergy Itching Verified 12/21/17 12:56 propoxyphene napsylate Allergy Difficulty Verified 12/24/18 14:40 [From Darvocet-N] Breathing opiates Allergy Hives Uncoded 04/07/14 13:41 Home Meds: Home Meds Esomeprazole Magnesium [Nexium 24Hr] 20 mg PO DAILY 06/18/17 [History] Famotidine 20 mg PO DAILY 06/18/17 [History] Lisinopril 10 mg PO DAILY 06/18/17 [History] Mirtazapine 15 mg PO DAILY 06/18/17 [History] PARoxetine [Paxil] 20 mg PO DAILY 12/24/18 [History] lamoTRIgine [Lamotrigine] 100 mg PO DAILY 12/24/18 [History] Past Medical History Cardiovascular History: Reports: Hypertension Respiratory History: Reports: None Other Respiratory History: Respiratory issues- PT not sure what the dx is Gastrointestinal History: Reports: None Genitourinary History: Reports: None 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: , Other (See Below) Other COMMUNITY HEALTH NAVIGATOR History: complete hysterectomy Musculoskeletal History: Reports: None Neurological History: Reports: None Psychiatric History: Reports: Anxiety, Depression Endocrine/Metabolic History: Reports: None Hematologic History: Reports: None Immunologic History: Reports: None Oncologic (Cancer) History: Reports: None Dermatologic History: Reports: None - Infectious Disease History Infectious Disease History: Reports: None - Past Surgical History Head Surgeries/Procedures: Reports: None HEENT Surgical History: Reports: Tonsillectomy Cardiovascular Surgical History: Reports: None Respiratory Surgical History: Reports: None GI Surgical History: Reports: Cholecystectomy Female Surgical History: Reports: Hysterectomy Endocrine Surgical History: Reports: None Neurological Surgical History: Reports: None Musculoskeletal Surgical History: Reports: Other (See Below) Other Musculoskeletal Surgeries/Procedures:: residual spinal, spinal fusions. Oncologic Surgical History: Reports: None Dermatological Surgical History: Reports: None Social & Family History - Family History Family Medical History: Noncontributory - Tobacco Use Smoking Status *Q: Current Every Day Smoker Years of Tobacco use: 30 Packs/Tins Daily: 1 - Caffeine Use Caffeine Use: Reports: Coffee, Soda - Recreational Drug Use Recreational Drug Use: No ED ROS GENERAL - Review of Systems Review Of Systems: ROS reveals no pertinent complaints other than HPI. ED EXAM, GENERAL - Physical Exam Exam: See Below (See dictation) Course - Vital Signs Last Recorded V/S: Last Vital Signs Temp 36.3 C 03/24/19 08:00 Pulse 87 03/24/19 08:00 Resp 18 03/24/19 08:00 BP 129/72 03/24/19 08:00 Pulse Ox 98 03/24/19 08:00 - Orders/Labs/Meds Orders: Active Orders 24 hr Category Date Time Status DME for Discharge [COMM] Stat Oth 03/24/19 09:08 Ordered Departure - Departure Time of Disposition: 09:21 Disposition: Home, Self-Care 01 Condition: Good Clinical Impression: Fall Knee contusion Qualifiers: Encounter type: initial encounter Laterality: unspecified laterality Qualified Code(s): S80.00XA - Contusion of unspecified knee, initial encounter - Discharge Information Referrals: PCP,None [Primary Care Provider] - Forms: ED Department Discharge Additional Instructions: The following information is given to patients seen in the emergency department who are being discharged to home. This information is to outline your options for follow-up care. We provide all patients seen in our emergency department with a follow-up referral. The need for follow-up, as well as the timing and circumstances, are variable depending upon the specifics of your emergency department visit. If you don't have a primary care physician on staff, we will provide you with a referral. We always advise you to contact your personal physician following an emergency department visit to inform them of the circumstance of the visit and for follow-up with them and/or the need for any referrals to a consulting specialist. The emergency department will also refer you to a specialist when appropriate. This referral assures that you have the opportunity for followup care with a specialist. All of these measure are taken in an effort to provide you with optimal care, which includes your followup. Under all circumstances we always encourage you to contact your private physician who remains a resource for coordinating your care. When calling for followup care, please make the office aware that this follow-up is from your recent emergency room visit. If for any reason you are refused follow-up, please contact the [facility] emergency department at and ask to speak to the emergency department charge nurse. [facility] Professional Building [address], [address] [place] [address] Dr Sandoval, Orthopedist [facility] [address] [place] [address] Dr Pate - Dr Terry - Dr Hugo [facility] at [facility] [address] [place] [address] [facility] [address] [place] [address] Ice to areas of swelling and pain for the next 24 hours and continue with ice and your knees but you may switch to heat on her back areas of muscle pain. Use [id number] ibuprofen/Motrin or Tylenol for pain and expect aches and pains over the next several days. He may follow-up with one of our local customer training specialist if you have persistent pain and your knees or as you choose. Return to ER as needed and as discussed and do all activities slower than usual to prevent further injury. - My Orders Last 24 Hours: My Active Orders 03/24/19 09:08 DME for Discharge [COMM] Stat - Assessment/Plan Last 24 Hours: My Active Orders 03/24/19 09:08 DME for Discharge [COMM] Stat
--- NOTE | 2019-03-24 09:16 | CR ---
INDICATION: Fall from standing last night. TECHNIQUE: Three views left knee. FINDINGS: Small benign cortical protuberances anterior patella. Moderate degenerative arthritis left knee. No acute fracture or dislocation left knee. Mild soft tissue swelling left knee anteriorly. Remainder negative. Dictated by Chidi Calderon MD @ Mar 24 2019 9:13AM Signed by Dr. Chidi Calderon @ Mar 24 2019 9:14AM
--- NOTE | 2019-03-24 09:16 | CR ---
INDICATION: Fall from standing last night. TECHNIQUE: Three views right knee. FINDINGS: Moderate soft tissue swelling right knee extending caudally into the infrapatellar region. Subcutaneous edema. Mild degenerative arthritis right knee. Ill-defined cortical protuberance which appears chronic and benign anterior right patella. No dislocation right knee. No acute fracture right knee. Remainder negative. Dictated by Chidi Calderon MD @ Mar 24 2019 9:15AM Signed by Dr. Chidi Calderon @ Mar 24 2019 9:15AM
== END 2019-03-24 09:47 | disposition home or self-care (01) ==
LOC: MW.ED 07:47
DX: S80.02XA Contusion of left knee, initial encounter (principal); S80.01XA Contusion of right knee, initial encounter; I10 Essential (primary) hypertension; F32.9 Major depressive disorder, single episode, unspecified; F17.210 Nicotine dependence, cigarettes, uncomplicated; Z79.899 Other long term (current) drug therapy; Z88.5 Allergy status to narcotic agent; Z88.0 Allergy status to penicillin; Z88.8 Allergy status to other drugs, medicaments and biological substances; Z91.040 Latex allergy status; W01.0XXA Fall on same level from slipping, tripping and stumbling without subsequent striking against object, initial encounter; Y92.59 Other trade areas as the place of occurrence of the external cause
CPT/HCPCS: 73562-26-LT; 73562-26-RT; 73562-LT; 73562-RT; 99283-25